=== PATIENT | male | born 1950 | race Caucasian/White ===

== ENCOUNTER 2019-05-12 12:59 | Inpatient (IN) | payer MEDICARE, OTHER ==
[~2019-05-12] VITALS: Ht 177.8 cm; Wt 98.5 kg
[~2019-05-12 12:59] MED LIST: LIDOcaine 2% (20mg/ml) 5ml vial ONE; albumin (human) 25% 100 ML IV solution IV ONE; aminocaproic acid 250 MG/1 ML inj. ONE; calcium chloride 100 MG/1 ML inj IV ONE; heparin 1,000 units/ml 10ml inj ONE; magnesium sulf 1 GM/2 ML ONE; methylPREDNISolone sod. succ. 500mg inj ONE; phenylephrine 10mg/ml inj. ONE; sodium bicarbonate (8.4%) 1 mEq/ml syringe ONE
[2019-05-12] MEDS ORDERED: heparin 25,000 UNIT/250ml bag 250 ML IV SCH ×2 (13:31→18:36)
[2019-05-12] MEDS ORDERED: heparin 10,000 units/1 ML INJ IV PRN ×2 (13:35→18:40)
--- NOTE | 2019-05-12 13:45 | NUR ---
Spoke with MD regarding use of PICC line. MD reviewed radiology results and ok'ed to use line.
[2019-05-12] MEDS ORDERED: insulin regular, human 100 UNIT in normal saline 100ml IV soln 100 ML IV SCH ×2 (13:47)
[2019-05-12 13:49] LABS: BASOPHILS # (AUTO) 0.1 X10'3 (0-0.2); BASOPHILS % (AUTO) 1.1 % (0-1); EOSINOPHILS # (AUTO) 0.2 X10'3 (0-0.9); EOSINOPHILS % (AUTO) 3.3 % (0-6); HEMATOCRIT 41.5 % (42.0-52.0); HEMOGLOBIN 13.9 g/dl (14.0-17.9); LYMPHOCYTES % (AUTO) 16.2 % (21-51); MEAN CORPUSCULAR HEMOGLOBIN 30.3 PG (27.0-31.0); MEAN CORPUSCULAR HGB CONC 33.5 g/dL (33.0-36.5); MEAN CORPUSCULAR VOLUME 90.4 FL (78-98); MEAN PLATELET VOLUME 8.4 FL (7.4-10.4); MONOCYTES # (AUTO) 0.6 X10'3 (0-0.9); MONOCYTES % (AUTO) 10.2 % (2-12); NEUTROPHILS # (AUTO) 4.3 X10'3 (1.8-7.7); NEUTROPHILS % (AUTO) 69.2 % (42-75); PLATELET COUNT 243 X10'3 (140-440); RED BLOOD COUNT 4.59 X10'6 (4.70-6.10); RED CELL DISTRIBUTION WIDTH 13.1 % (11.5-14.5); WHITE BLOOD COUNT 6.3 X10'3 (4.5-11.0)
[2019-05-12] MEDS ORDERED: cefazolin/dext.iso 2gm/50ml 50 ML IV ONE (13:50)
[2019-05-12] MEDS ORDERED: MALTODEXTRIN/FRUCTOSE 0.68 KCAL/ML LIQUID 296ML BOTTLE PO ONE (13:50)
[2019-05-12] MEDS ORDERED: magnesium 4gm in 100ml NS 100 ML IV PRN ×2 (13:50→16:50)
[2019-05-12] MEDS ORDERED: dextrose 50%-water 50ml dispensing syringe IV PRN ×3 (13:50→21:50)
[2019-05-12] MEDS ORDERED: MESSAGE TO NURSING PO ONE ×4 (13:50)
[2019-05-12] MEDS ORDERED: potassium Cl 20mEq/100mL bag 100 ML IV PRN (13:50)
[2019-05-12] MEDS ORDERED: gabapentin 400mg capsule PO ONE (13:50)
[2019-05-12] MEDS ORDERED: insulin glargine (Lantus) pen - multi-dose SQ PRN (13:50)
[2019-05-12] MEDS ORDERED: magnesium 2GM in 50ml NS 50 ML IV PRN ×2 (13:50→16:50)
[2019-05-12] MEDS ORDERED: vancomycin/NS 1 GM ADD-VANTAGE 250 ML IV ONE (13:50)
[2019-05-12] MEDS ORDERED: potassium Cl 20 mEq SR tablet PO PRN ×3 (13:50→16:50)
--- NOTE | 2019-05-12 13:56 | NUR ---
DR VILLA NOTIFIED OF 10 BEAT RUN OF V-Genome. NO NEW ORDERS AT THIS TIME.
[2019-05-12] MEDS ORDERED: papaverine 30 mg/ml 2ml inj. ONE (14:00)
[2019-05-12] MEDS ORDERED: heparin 10,000 units/1 ML INJ ONE (14:00)
--- NOTE | 2019-05-12 14:00 | NUR ---
RT AT BEDSIDE JOAN BORREGO
[2019-05-12 14:01] LABS: PARTIAL THROMBOPLASTIN TIME 41 SECONDS (22-32)
[2019-05-12 14:02] LABS: ALANINE AMINOTRANSFERASE 34 U/L (12-78); ALBUMIN 3.3 G/DL (3.4-5.0); ALBUMIN/GLOBULIN RATIO 0.9 (1.1-1.5); ALKALINE PHOSPHATASE 54 IU/L (46-116); ASPARTATE AMINO TRANSFERASE 13 U/L (10-37); BILIRUBIN,TOTAL 0.3 MG/DL (0.1-1.0); BLOOD UREA NITROGEN 15 MG/DL (7-18); BUN/CREATININE RATIO 13.9 (5.4-32.0); CALCIUM 8.8 MG/DL (8.5-10.1); CREATININE 1.08 MG/DL (0.60-1.10); GLUCOSE 192 MG/DL (70-104); TOTAL CARBON DIOXIDE 27.3 MMOL/L (24-32); TOTAL PROTEIN 7.1 G/DL (6.4-8.2); eGFR 68 ML/MIN
[2019-05-12 14:10] LABS: MAGNESIUM 1.8 MG/DL (1.5-2.4)
[2019-05-12 14:15] LABS: ABG BASE EXCESS -2.5 mmol/L (-2.0-3.0); ABG OXYGEN SATURATION 95.8 % (95-98); ABG PCO2 (T) 32.9 mmHg (35.0-45.0); ABG PH (T) 7.423 (7.350-7.450); ABG PO2 (T) 80.5 mmHg (83-108); ALLEN'S TEST Positive; FCOHb 0.9 % (0.5-1.5); FMetHb 0.1 % (0.3-1.12); FO2Hb 94.8 % (94-100); RESPIRATORY RATE (OBSERVED) 13 b/min; TOTAL HEMOGLOBIN 14.4 G/dl (14.0-17.9)
[2019-05-12 14:59] LABS: ANION GAP 5 (8-16); CHLORIDE 105 MMOL/L (99-107); POTASSIUM 4.3 MMOL/L (3.5-5.1); SODIUM 137 MMOL/L (135-145)
[2019-05-12] MEDS: amiodarone/D5 360MG/200ML BAG 200 ML IV SCH ×2 (15:00→20:51)
--- NOTE | 2019-05-12 15:06 | NUR ---
Amiodarone started at this time per protocol.
[2019-05-12 15:48] LABS: HEMOGLOBIN A1C 7.8 % (4.5-6.2)
[2019-05-12 15:54] LABS: CLARITY,URINE CLEAR (Clear); COLOR,URINE YELLOW (Yellow); GLUCOSE, URINE NEGATIVE (Neg); KETONES,URINE NEGATIVE (Neg); LEUKOCYTE ESTERASE ,URINE NEGATIVE (Neg); NITRITES, URINE NEGATIVE (Neg); OCCULT BLOOD,URINE NEGATIVE (Neg); PROTEIN,URINE NEGATIVE (Neg); UROBILINOGEN,URINE 0.2 E.U/dL (0.2-1.0)
[2019-05-12 15:55] LABS: UA COLLECTION TYPE URINAL
[2019-05-12] MEDS ORDERED: CARV3.122 PO (16:11)
[2019-05-12] MEDS ORDERED: OMEP20CA11 PO (16:11)
[2019-05-12] MEDS ORDERED: ATOR-2 PO (16:11)
[2019-05-12] MEDS ORDERED: AMIO200T61 PO (16:11)
[2019-05-12] MEDS ORDERED: NITR0.4T48 SL (16:11)
[2019-05-12] MEDS ORDERED: ASPI-845 PO (16:11)
[2019-05-12] MEDS ORDERED: INSU100V9 SQ (16:11)
[2019-05-12] MEDS ORDERED: LISI-604 PO (16:11)
[2019-05-12] MEDS ORDERED: GLIM4TAB4 PO (16:11)
[2019-05-12] MEDS ORDERED: normal saline 1000ml 1,000 ML IV SCH (16:47)
[2019-05-12] MEDS ORDERED: sodium phosphate inj. 15 MMOL in dextrose 5%-water 150 ML IV PRN (16:50)
[2019-05-12] MEDS ORDERED: sodium phosphate inj. 30 MMOL in dextrose 5%-water 250 ML IV PRN (16:50)
[2019-05-12] MEDS ORDERED: magnesium Cl slow-release 64mg tablet PO PRN (16:50)
[2019-05-12] MEDS ORDERED: ondansetron/PF 4mg/2ml inj IV PRN (16:50)
[2019-05-12] MEDS ORDERED: bisacodyl 10mg suppository rectal RC PRN (16:50)
[2019-05-12] MEDS ORDERED: magnesium hydroxide 30ml (MOM) UD suspension PO PRN (16:50)
[2019-05-12] MEDS ORDERED: acetaminophen 325mg tablet PO PRN ×2 (16:50)
[2019-05-12] MEDS ORDERED: morphine 2 MG/ML inj. syringe IV PRN (16:50)
[2019-05-12] MEDS ORDERED: morphine 4 MG/ML inj SYRINge IV PRN (16:50)
[2019-05-12] MEDS ORDERED: Neutra Phos packet PO PRN (16:50)
[2019-05-12] MEDS ORDERED: amiodarone/D5 360MG/200ML BAG 200 ML IV SCH ×2 (16:55→17:09)
--- NOTE | 2019-05-12 17:23 | NUR ---
VASCULAR AT BEDSIDE.
[2019-05-12] MEDS: mupirocin 2% nasal ointment 1gm UD NS SCH ×2 (18:11→21:54)
[2019-05-12 18:22] LABS: MEAN CORPUSCULAR HEMOGLOBIN 30.3 PG (27.0-31.0); MEAN CORPUSCULAR HGB CONC 34.1 g/dL (33.0-36.5); MEAN CORPUSCULAR VOLUME 88.9 FL (78-98); MEAN PLATELET VOLUME 8.5 FL (7.4-10.4); PLATELET COUNT 247 X10'3 (140-440); RED BLOOD COUNT 4.61 X10'6 (4.70-6.10); RED CELL DISTRIBUTION WIDTH 13.3 % (11.5-14.5); WHITE BLOOD COUNT 6.8 X10'3 (4.5-11.0)
[2019-05-12 18:44] LABS: ALBUMIN 3.3 G/DL (3.4-5.0); ANION GAP 8 (8-16); BLOOD UREA NITROGEN 15 MG/DL (7-18); CALCIUM 8.8 MG/DL (8.5-10.1); CHLORIDE 105 MMOL/L (99-107); GLUCOSE 169 MG/DL (70-104); LDL CHOLESTEROL 47 MG/DL (50-100); POTASSIUM 4.3 MMOL/L (3.5-5.1); SODIUM 139 MMOL/L (135-145); TOTAL CARBON DIOXIDE 26.4 MMOL/L (24-32); eGFR 74 ML/MIN
--- NOTE | 2019-05-12 18:45 | NUR ---
Pt refusing ordered FC at this time. He is willing to have one placed in the OR, but explained, "it's just not a natural thing. Anything we can do to delay putting that thing where it doesn't belong would be good." Pt visibly anxious throughout exchange. FC placement being delayed at this time. pt able to use urinal without issue.
--- NOTE | 2019-05-12 19:05 | NUR ---
PT GIVEN A LIGHT MEAL OF TURKEY SANDWICH AND YOGURT UPON REQUEST. PT INSTRUCTED THIS WILL BE LAST MEAL BEFORE NOP FOR SURGERY TOMORROW. PT AND FAMILY VERBALIZED UNDERSTANDING
[2019-05-12] MEDS ORDERED: heparin, porcine 5000 units/ml vial SQ SCH (20:00)
--- NOTE | 2019-05-12 20:00 | NUR ---
AMIODARONE DRIP DECREASED TO O.5ML/HR
[2019-05-12 20:04] LABS: PARTIAL THROMBOPLASTIN TIME 51 SECONDS (22-32)
--- NOTE | 2019-05-12 20:30 | NUR ---
Addressed FC placement again. Pt continues to refuse it. Will pass on pt request to hold FC placement until in the OR when report to floor called.
[2019-05-12] MEDS ORDERED: insulin glargine (Lantus) pen - multi-dose SQ SCH (21:00)
[2019-05-12] MEDS ORDERED: MESSAGE TO PHARMACY PO ONE (21:50)
[2019-05-12] MEDS ORDERED: dextrose ORAL solution 15 GM/59 ML bottle PO PRN ×2 (21:50)
[2019-05-12] MEDS ORDERED: glucagon, human recombinant 1mg kit SUBCUT PRN (21:50)
[2019-05-12] MEDS ORDERED: insulin Lispro (HumaLOG) vial - multi-dose SQ SCH (21:50)
[2019-05-12] MEDS: metoprolol tartrate 12.5mg (1/2 tablet) PO SCH (21:53)
[2019-05-12 22:00] VITALS: BP 127/67
[2019-05-12] MEDS ORDERED: insulin glargine (Lantus) pen - multi-dose SQ ONE (22:30)
[2019-05-13] VITALS (15 sets, daily range): BP systolic 99–155; BP diastolic 49–98
[2019-05-13 02:18] LABS: BASOPHILS # (AUTO) 0.1 X10'3 (0-0.2); BASOPHILS % (AUTO) 0.9 % (0-1); EOSINOPHILS # (AUTO) 0.3 X10'3 (0-0.9); EOSINOPHILS % (AUTO) 3.7 % (0-6); HEMATOCRIT 40.8 % (42.0-52.0); HEMOGLOBIN 13.6 g/dl (14.0-17.9); LYMPHOCYTES # (AUTO) 1.4 X10'3 (1.1-4.8); LYMPHOCYTES % (AUTO) 19.5 % (21-51); MEAN CORPUSCULAR HEMOGLOBIN 30.1 PG (27.0-31.0); MEAN CORPUSCULAR HGB CONC 33.3 g/dL (33.0-36.5); MEAN CORPUSCULAR VOLUME 90.4 FL (78-98); MEAN PLATELET VOLUME 8.5 FL (7.4-10.4); MONOCYTES # (AUTO) 0.7 X10'3 (0-0.9); MONOCYTES % (AUTO) 10.5 % (2-12); NEUTROPHILS # (AUTO) 4.5 X10'3 (1.8-7.7); NEUTROPHILS % (AUTO) 65.4 % (42-75); PLATELET COUNT 227 X10'3 (140-440); RED BLOOD COUNT 4.51 X10'6 (4.70-6.10); WHITE BLOOD COUNT 6.9 X10'3 (4.5-11.0)
[2019-05-13 02:29] LABS: ALANINE AMINOTRANSFERASE 30 U/L (12-78); ALBUMIN 3.1 G/DL (3.4-5.0); ALBUMIN/GLOBULIN RATIO 0.9 (1.1-1.5); ALKALINE PHOSPHATASE 49 IU/L (46-116); ANION GAP 7 (8-16); ASPARTATE AMINO TRANSFERASE 15 U/L (10-37); BILIRUBIN,TOTAL 0.3 MG/DL (0.1-1.0); BLOOD UREA NITROGEN 15 MG/DL (7-18); BUN/CREATININE RATIO 14.6 (5.4-32.0); CALCIUM 8.7 MG/DL (8.5-10.1); CHLORIDE 106 MMOL/L (99-107); CREATININE 1.03 MG/DL (0.60-1.10); GLUCOSE 149 MG/DL (70-104); SODIUM 139 MMOL/L (135-145); TOTAL CARBON DIOXIDE 26.5 MMOL/L (24-32); TOTAL PROTEIN 6.7 G/DL (6.4-8.2); eGFR 71 ML/MIN
[2019-05-13 02:32] LABS: MAGNESIUM 1.6 MG/DL (1.5-2.4); PHOSPHORUS 3.8 MG/DL (2.3-4.5)
[2019-05-13] MEDS ORDERED: potassium Cl 2 mEq/ml inj IV ONE (06:00)
--- NOTE | 2019-05-13 06:20 | NUR ---
Gave report to Cassandra. Answered all the questions.
--- NOTE | 2019-05-13 06:24 | NUR ---
heparin drip was stopped at 0530. Charge Nurse-Reddy aware of that heparin stop.
[2019-05-13] MEDS ORDERED: famotidine 20mg tablet PO ONE (07:00)
[2019-05-13] MEDS ORDERED: LORazepam 2 mg/ml vial IV ONE (07:00)
[2019-05-13] MEDS ORDERED: pantoprazole 40mg Tablet.DR PO SCH (07:30)
[2019-05-13] MEDS ORDERED: MALTODEXTRIN/FRUCTOSE 0.68 KCAL/ML LIQUID 296ML BOTTLE PO ONE (07:30)
[2019-05-13] MEDS ORDERED: cefazolin/dext.iso 2gm/50ml 50 ML IV ONE (07:30)
[2019-05-13] MEDS ORDERED: vancomycin/NS 1 GM ADD-VANTAGE 250 ML IV ONE (07:30)
[2019-05-13] MEDS ORDERED: gabapentin 300mg capsule PO ONE (07:30)
--- NOTE | 2019-05-13 07:43 | NUR ---
INFORMED DR. ROMERO AND DR. CLARK ABOUT GLUCOSE 165 BEFORE PRE-SURGERY ENSURE DRINK. NEW NEW ORDERS AT THIS TIME
[2019-05-13] MEDS: metoprolol tartrate 12.5mg (1/2 tablet) PO SCH (07:54)
[2019-05-13] MEDS: mupirocin 2% nasal ointment 1gm UD NS SCH (07:54)
--- NOTE | 2019-05-13 09:15 | NUR ---
Patient transported to surgery by OR team.
[2019-05-13] MEDS ORDERED: SUFENTANIL CITRATE 50 MCG/ML 2ml ampule IV ONE (09:25)
[2019-05-13] MEDS ORDERED: midazolam 2 mg/2 ml injection ONE (09:25)
[2019-05-13] MEDS ORDERED: sevoflurane 250ml liquid IH ONE (09:26)
[2019-05-13] MEDS ORDERED: DOPamine/D5W 400mg/250ml bag IV ONE (09:26)
[2019-05-13] MEDS ORDERED: acetaminophen 1000 MG/100ml vial IV ONE (09:26)
[2019-05-13] MEDS ORDERED: insulin regular, human 100 UNIT in normal saline 100ml IV soln 100 ML IV SCH ×2 (09:30)
[2019-05-13] MEDS ORDERED: MESSAGE TO NURSING PO ONE (10:00)
[2019-05-13 10:16] LABS: ABG BASE EXCESS -1.8 mmol/L (-2.0-3.0); ABG HCO3 23.1 mmol/L (22.0-26.0); ABG OXYGEN SATURATION 96.7 % (95-98); ABG PCO2 39.8 mmHg (35.0-45.0); ABG PH 7.382 (7.350-7.450); ABG PO2 88.6 mmHg (60.0-100.0); CL (ABG) 102 mmol/L (99-107); FCOHb 0.7 % (0.5-1.5); FMetHb 0.2 % (0.3-1.12); FO2Hb 95.8 % (94-100); GLUCOSE (ABG) 280 mg/dl (70-104); IONIZED CA (ABG) 1.14 mmol/L (1.03-1.32); K (ABG) 4.1 mmol/L (3.3-5.1); NA (ABG) 136 mmol/L (135-145); TOTAL HEMOGLOBIN 13.3 G/dl (14.0-17.9)
[2019-05-13] MEDS ORDERED: DESMOPRESSIN IV ONE (10:25)
[2019-05-13] MEDS ORDERED: NORMAL SALINE IV ONE (10:25)
--- NOTE | 2019-05-13 11:00 | NUR ---
I have reviewed and agree with all interventions, assessments performed and documented by KILO Cardenas .
--- NOTE | 2019-05-13 11:02 | NUR ---
Patient in room MED 316. I have received report from KILO Reid and had the opportunity to ask questions and assume patient care.
[2019-05-13 11:05] LABS: ABG BASE EXCESS VENOUS -2.6 mmol/L; ABG HCO3 VENOUS 23.3 mmol/L; ABG PCO2 VENOUS 44.5 mmHg; CL (ABG) 102 mmol/L (99-107); FCOHb VENOUS 0.8 %; FHHb VENOUS 24.3 %; FMetHb VENOUS 0.3 %; FO2Hb VENOUS 74.6 %; GLUCOSE (ABG) 253 mg/dl (70-104); K (ABG) 4.1 mmol/L (3.3-5.1); NA (ABG) 135 mmol/L (135-145); TOTAL HEMOGLOBIN 13.3 G/dl (14.0-17.9)
[2019-05-13] MEDS ORDERED: propofol inj 20 ML IV ONE (11:14)
[2019-05-13] MEDS ORDERED: ePHEDrine 50MG/ML INJ. ONE (11:14)
[2019-05-13] MEDS ORDERED: rocuronium 10mg/ml inj IV ONE ×3 (11:14)
[2019-05-13 11:26] LABS: ABG BASE EXCESS 0.8 mmol/L (-2.0-3.0); ABG OXYGEN SATURATION 99.3 % (95-98); ABG PCO2 38.6 mmHg (35.0-45.0); ABG PO2 302.5 mmHg (60.0-100.0); CL (ABG) 100 mmol/L (99-107); FCOHb 0.1 % (0.5-1.5); FMetHb 0.1 % (0.3-1.12); FO2Hb 99.1 % (94-100); GLUCOSE (ABG) 224 mg/dl (70-104); IONIZED CA (ABG) 1.02 mmol/L (1.03-1.32); K (ABG) 4.7 mmol/L (3.3-5.1); NA (ABG) 135 mmol/L (135-145); TOTAL HEMOGLOBIN 10.8 G/dl (14.0-17.9)
[2019-05-13 11:51] LABS: ABG BASE EXCESS VENOUS -2.3 mmol/L; ABG HCO3 VENOUS 22.3 mmol/L; ABG PCO2 VENOUS 37.4 mmHg; ABG PO2 VENOUS 54.3 mmHg; CL (ABG) 100 mmol/L (99-107); FCOHb VENOUS 0.6 %; FHHb VENOUS 13.1 %; FMetHb VENOUS 0.1 %; FO2Hb VENOUS 86.2 %; GLUCOSE (ABG) 198 mg/dl (70-104); IONIZED CA (ABG) 1.08 mmol/L (1.03-1.32); NA (ABG) 134 mmol/L (135-145); TOTAL HEMOGLOBIN 11.1 G/dl (14.0-17.9)
[2019-05-13 12:35] LABS: ABG BASE EXCESS 1.1 mmol/L (-2.0-3.0); ABG HCO3 25.3 mmol/L (22.0-26.0); ABG OXYGEN SATURATION 99.3 % (95-98); ABG PCO2 38.6 mmHg (35.0-45.0); ABG PH 7.435 (7.350-7.450); ABG PO2 393.3 mmHg (60.0-100.0); CL (ABG) 100 mmol/L (99-107); FMetHb 0.2 % (0.3-1.12); FO2Hb 99.1 % (94-100); GLUCOSE (ABG) 197 mg/dl (70-104); IONIZED CA (ABG) 1.33 mmol/L (1.03-1.32); K (ABG) 5.1 mmol/L (3.3-5.1); NA (ABG) 131 mmol/L (135-145); TOTAL HEMOGLOBIN 10.1 G/dl (14.0-17.9)
[2019-05-13 13:05] LABS: ABG BASE EXCESS VENOUS 1.8 mmol/L; ABG HCO3 VENOUS 26.6 mmol/L; ABG PCO2 VENOUS 42.6 mmHg; CL (ABG) 101 mmol/L (99-107); FCOHb VENOUS 0.6 %; FHHb VENOUS 29.3 %; FMetHb VENOUS 0.5 %; FO2Hb VENOUS 69.6 %; GLUCOSE (ABG) 192 mg/dl (70-104); IONIZED CA (ABG) 1.18 mmol/L (1.03-1.32); K (ABG) 4.8 mmol/L (3.3-5.1); NA (ABG) 136 mmol/L (135-145); TOTAL HEMOGLOBIN 11.3 G/dl (14.0-17.9)
[2019-05-13] MEDS ORDERED: DOPamine 400mg/D5W 250ml 250 ML IV PRN (13:41)
[2019-05-13] MEDS ORDERED: niCARDipine-NS 40mg/200ml IVPB 200 ML IV PRN (13:41)
[2019-05-13] MEDS ORDERED: nitroGLYCERIN-Tridil 50MG/D5W 250 ML IV PRN (13:41)
[2019-05-13] MEDS ORDERED: pantoprazole 40 MG vial IV ONE (13:45)
[2019-05-13] MEDS ORDERED: normal saline 250ml IV soln 250 ML IV PRN (13:45)
[2019-05-13] MEDS ORDERED: Neutra Phos packet PO PRN (13:45)
[2019-05-13] MEDS ORDERED: potassium Cl 20 mEq SR tablet PO PRN (13:45)
[2019-05-13] MEDS ORDERED: magnesium hydroxide 30ml (MOM) UD suspension PO PRN (13:45)
[2019-05-13] MEDS ORDERED: dextrose 50%-water 50ml dispensing syringe IV PRN (13:45)
[2019-05-13] MEDS ORDERED: magnesium 4gm in 100ml NS 100 ML IV PRN (13:45)
[2019-05-13] MEDS: insulin regular, human inj. 100 UNITS in normal saline 100ml IV soln 100 ML IV SCH ×2 (13:45)
[2019-05-13] MEDS ORDERED: ondansetron/PF 4mg/2ml inj IV PRN (13:45)
[2019-05-13] MEDS ORDERED: acetaminophen 325mg tablet PO PRN (13:45)
[2019-05-13] MEDS ORDERED: HYDROcodone/acetaminophen 10/325mg tab PO PRN ×2 (13:45)
[2019-05-13] MEDS ORDERED: sodium phosphate inj. 15 MMOL in dextrose 5%-water 150 ML IV PRN (13:45)
[2019-05-13] MEDS ORDERED: sodium phosphate inj. 30 MMOL in dextrose 5%-water 250 ML IV PRN (13:45)
[2019-05-13] MEDS ORDERED: metoclopramide 5 mg/ml inj IV PRN (13:45)
--- NOTE | 2019-05-13 14:00 | NUR ---
Received to room 2045, accompanied by MDs and surgical crew. Placed on ventilator, to monitoring engineer, arterial line and PA line pressure monitored. Chest tubes to suction at 20 cm. Branch cath to gravity drainage. Dressings are dry and intact. See assessment record. All vasoactive drugs are infusing via central line.
[2019-05-13 14:06] LABS: ABG BASE EXCESS 0.6 mmol/L (-2.0-3.0); ABG HCO3 24.7 mmol/L (22.0-26.0); ABG OXYGEN SATURATION 92.7 % (95-98); ABG PCO2 (T) 37.1 mmHg (35.0-45.0); ABG PH (T) 7.438 (7.350-7.450); ABG PO2 (T) 61.4 mmHg (83-108); FCOHb 0.2 % (0.5-1.5); FMetHb 0.1 % (0.3-1.12); FO2Hb 92.4 % (94-100); MINUTE VOLUME 8 L/min; PATIENT TEMPERATURE 36.3; PEEP 5 cm H2O; RESPIRATORY RATE 12 b/min; RESPIRATORY RATE (OBSERVED) 12 b/min; TIDAL VOLUME 600 mL; TOTAL HEMOGLOBIN 13.3 G/dl (14.0-17.9)
[2019-05-13 14:20] LABS: BASOPHILS % (AUTO) 0.4 % (0-1); EOSINOPHILS # (AUTO) 0.1 X10'3 (0-0.9); HEMATOCRIT 37.6 % (42.0-52.0); HEMOGLOBIN 12.8 g/dl (14.0-17.9); LYMPHOCYTES # (AUTO) 0.5 X10'3 (1.1-4.8); LYMPHOCYTES % (AUTO) 5.4 % (21-51); MEAN CORPUSCULAR HEMOGLOBIN 30.6 PG (27.0-31.0); MEAN CORPUSCULAR HGB CONC 34.1 g/dL (33.0-36.5); MEAN CORPUSCULAR VOLUME 89.7 FL (78-98); MEAN PLATELET VOLUME 8.5 FL (7.4-10.4); MONOCYTES # (AUTO) 0.4 X10'3 (0-0.9); MONOCYTES % (AUTO) 4.8 % (2-12); NEUTROPHILS # (AUTO) 8.1 X10'3 (1.8-7.7); NEUTROPHILS % (AUTO) 88.4 % (42-75); PLATELET COUNT 175 X10'3 (140-440); RED BLOOD COUNT 4.19 X10'6 (4.70-6.10); RED CELL DISTRIBUTION WIDTH 13.1 % (11.5-14.5); WHITE BLOOD COUNT 9.2 X10'3 (4.5-11.0)
[2019-05-13 14:28] LABS: PARTIAL THROMBOPLASTIN TIME 27 SECONDS (22-32)
[2019-05-13 14:29] LABS: ALANINE AMINOTRANSFERASE 22 U/L (12-78); ALBUMIN 2.7 G/DL (3.4-5.0); ALKALINE PHOSPHATASE 36 IU/L (46-116); ANION GAP 6 (8-16); BILIRUBIN,TOTAL 0.4 MG/DL (0.1-1.0); BLOOD UREA NITROGEN 13 MG/DL (7-18); BUN/CREATININE RATIO 10.9 (5.4-32.0); CALCIUM 8.3 MG/DL (8.5-10.1); CHLORIDE 107 MMOL/L (99-107); CREATININE 1.19 MG/DL (0.60-1.10); GLUCOSE 176 MG/DL (70-104); MAGNESIUM 2.8 MG/DL (1.5-2.4); POTASSIUM 3.9 MMOL/L (3.5-5.1); SODIUM 141 MMOL/L (135-145); TOTAL CARBON DIOXIDE 27.9 MMOL/L (24-32); TOTAL PROTEIN 5.3 G/DL (6.4-8.2); eGFR 60 ML/MIN
[2019-05-13 14:30] LABS: ASPARTATE AMINO TRANSFERASE 26 U/L (10-37)
--- NOTE | 2019-05-13 14:30 | NUR ---
pO2 61 on 80% FiO2 and PEEP of 5. Dr. Sharma at bedside with orders to increase PEEP to 10; okay to wean PEEP as tolerated.
[2019-05-13] MEDS: albumin (Human) 5% 250ml 250 ML IV PRN ×2 (15:16→17:17)
[2019-05-13] MEDS: sodium chloride 0.45% 1,000 ML IV SCH (15:19)
[2019-05-13] MEDS: potassium Cl 20mEq/100mL bag 100 ML IV PRN ×3 (15:33→22:36)
[2019-05-13] MEDS: ceFAZolin 1GM/D5W- ADD-VANTAGE 50 ML IV SCH ×2 (16:29→23:11)
[2019-05-13 16:45] LABS: ABG BASE EXCESS 0.8 mmol/L (-2.0-3.0); ABG HCO3 25.2 mmol/L (22.0-26.0); ABG OXYGEN SATURATION 95.1 % (95-98); ABG PCO2 (T) 38.9 mmHg (35.0-45.0); ABG PH (T) 7.427 (7.350-7.450); ABG PO2 (T) 72.8 mmHg (83-108); FCOHb 0.1 % (0.5-1.5); FMetHb 0.1 % (0.3-1.12); FO2Hb 94.9 % (94-100); MINUTE VOLUME 7 L/min; PATIENT TEMPERATURE 36.5; PEEP 10 cm H2O; RESPIRATORY RATE 12 b/min; TIDAL VOLUME 600 mL; TOTAL HEMOGLOBIN 13.1 G/dl (14.0-17.9)
[2019-05-13] MEDS: insulin Lispro (HumaLOG) vial - multi-dose SQ SCH (17:48)
[2019-05-13 18:00] LABS: ABG BASE EXCESS -1.2 mmol/L (-2.0-3.0); ABG OXYGEN SATURATION 94.9 % (95-98); ABG PCO2 (T) 36.1 mmHg (35.0-45.0); ABG PH (T) 7.421 (7.350-7.450); ABG PO2 (T) 74.3 mmHg (83-108); FCOHb 0.3 % (0.5-1.5); FMetHb 0.1 % (0.3-1.12); FO2Hb 94.5 % (94-100); MINUTE VOLUME 8 L/min; PATIENT TEMPERATURE 36.6; PEEP 8 cm H2O; RESPIRATORY RATE 12 b/min; TIDAL VOLUME 600 mL; TOTAL HEMOGLOBIN 12.5 G/dl (14.0-17.9)
--- NOTE | 2019-05-13 18:30 | NUR ---
Problems reprioritized. Patient report given, questions answered & plan of care reviewed with Beena BOATENG.
[2019-05-13] MEDS: morphine 4 MG/ML inj SYRINge IV PRN ×3 (18:55→23:11)
[2019-05-13] MEDS: docusate sod 100mg capsule PO SCH (20:00)
[2019-05-13] MEDS: gabapentin 300mg capsule PO SCH (20:10)
[2019-05-13] MEDS: vancomycin/NS 1 GM ADD-VANTAGE 250 ML IV SCH (20:10)
[2019-05-13] MEDS: mupirocin 2% ointment 22GM TP SCH (20:10)
[2019-05-13] MEDS: amiodarone/D5 360MG/200ML BAG 200 ML IV SCH (20:12)
[2019-05-13 20:16] LABS: ABG BASE EXCESS -0.7 mmol/L (-2.0-3.0); ABG HCO3 23.3 mmol/L (22.0-26.0); ABG OXYGEN SATURATION 94.3 % (95-98); ABG PCO2 (T) 36.2 mmHg (35.0-45.0); ABG PH (T) 7.426 (7.350-7.450); ABG PO2 (T) 70.5 mmHg (83-108); FCOHb 0.3 % (0.5-1.5); FMetHb 0.2 % (0.3-1.12); FO2Hb 93.8 % (94-100); PEEP 5 cm H2O; RESPIRATORY RATE 12 b/min; RESPIRATORY RATE (OBSERVED) 12 b/min; TIDAL VOLUME 600 mL; TOTAL HEMOGLOBIN 12.9 G/dl (14.0-17.9)
[2019-05-13 20:59] LABS: BASOPHILS % (AUTO) 0.2 % (0-1); EOSINOPHILS % (AUTO) 0 % (0-6); HEMATOCRIT 35.3 % (42.0-52.0); HEMOGLOBIN 12.1 g/dl (14.0-17.9); LYMPHOCYTES # (AUTO) 0.4 X10'3 (1.1-4.8); LYMPHOCYTES % (AUTO) 3.3 % (21-51); MEAN CORPUSCULAR HEMOGLOBIN 30.4 PG (27.0-31.0); MEAN CORPUSCULAR HGB CONC 34.2 g/dL (33.0-36.5); MEAN CORPUSCULAR VOLUME 88.8 FL (78-98); MEAN PLATELET VOLUME 8.5 FL (7.4-10.4); MONOCYTES # (AUTO) 0.3 X10'3 (0-0.9); MONOCYTES % (AUTO) 2.8 % (2-12); NEUTROPHILS # (AUTO) 10.8 X10'3 (1.8-7.7); NEUTROPHILS % (AUTO) 93.7 % (42-75); PLATELET COUNT 199 X10'3 (140-440); RED BLOOD COUNT 3.98 X10'6 (4.70-6.10); RED CELL DISTRIBUTION WIDTH 13.2 % (11.5-14.5); WHITE BLOOD COUNT 11.6 X10'3 (4.5-11.0)
[2019-05-13] MEDS ORDERED: insulin glargine (Lantus) pen - multi-dose SQ SCH (21:00)
[2019-05-13 21:52] LABS: ALBUMIN 3.2 G/DL (3.4-5.0); ANION GAP 8 (8-16); BLOOD UREA NITROGEN 15 MG/DL (7-18); BUN/CREATININE RATIO 13.5 (5.4-32.0); CALCIUM 8.2 MG/DL (8.5-10.1); CHLORIDE 108 MMOL/L (99-107); CREATININE 1.11 MG/DL (0.60-1.10); GLUCOSE 127 MG/DL (70-104); MAGNESIUM 2.2 MG/DL (1.5-2.4); PHOSPHORUS 4.7 MG/DL (2.3-4.5); SODIUM 143 MMOL/L (135-145); TOTAL CARBON DIOXIDE 26.7 MMOL/L (24-32); eGFR 65 ML/MIN
--- NOTE | 2019-05-13 22:27 | NUR ---
183..Patient in room ICU 2045. I have received report from [place] BOATENG and had the opportunity to ask questions and assume patient care.
--- NOTE | 2019-05-13 22:28 | NUR ---
1999..Assessment as noted, morphine given for complaints of incisional pain, effective. visiting at bedside.
[2019-05-13] MEDS: magnesium 2GM in 50ml NS 50 ML IV PRN (22:37)
[2019-05-14] VITALS (24 sets, daily range): BP systolic 97–149; BP diastolic 43–64
--- NOTE | 2019-05-14 00:19 | NUR ---
0000..Resting quietly, remains at bedside, attempting to wean vent, no other changes noted.
[2019-05-14 01:53] LABS: BASOPHILS % (AUTO) 0.1 % (0-1); EOSINOPHILS % (AUTO) 0 % (0-6); HEMATOCRIT 34.2 % (42.0-52.0); HEMOGLOBIN 11.4 g/dl (14.0-17.9); LYMPHOCYTES # (AUTO) 0.4 X10'3 (1.1-4.8); LYMPHOCYTES % (AUTO) 3.4 % (21-51); MEAN CORPUSCULAR HEMOGLOBIN 30.3 PG (27.0-31.0); MEAN CORPUSCULAR HGB CONC 33.4 g/dL (33.0-36.5); MEAN CORPUSCULAR VOLUME 90.6 FL (78-98); MEAN PLATELET VOLUME 9.2 FL (7.4-10.4); MONOCYTES # (AUTO) 0.5 X10'3 (0-0.9); MONOCYTES % (AUTO) 4.1 % (2-12); NEUTROPHILS # (AUTO) 11.1 X10'3 (1.8-7.7); NEUTROPHILS % (AUTO) 92.4 % (42-75); PLATELET COUNT 182 X10'3 (140-440); RED BLOOD COUNT 3.78 X10'6 (4.70-6.10); RED CELL DISTRIBUTION WIDTH 13.3 % (11.5-14.5)
[2019-05-14] MEDS: amiodarone/D5 360MG/200ML BAG 200 ML IV SCH (01:58)
[2019-05-14 02:09] LABS: PARTIAL THROMBOPLASTIN TIME 24 SECONDS (22-32)
[2019-05-14 02:18] LABS: ALANINE AMINOTRANSFERASE 24 U/L (12-78); ALBUMIN 3.2 G/DL (3.4-5.0); ALBUMIN/GLOBULIN RATIO 1.2 (1.1-1.5); ALKALINE PHOSPHATASE 33 IU/L (46-116); ANION GAP 9 (8-16); ASPARTATE AMINO TRANSFERASE 34 U/L (10-37); BILIRUBIN,TOTAL 0.3 MG/DL (0.1-1.0); BLOOD UREA NITROGEN 14 MG/DL (7-18); BUN/CREATININE RATIO 12.7 (5.4-32.0); CALCIUM 8.2 MG/DL (8.5-10.1); CHLORIDE 108 MMOL/L (99-107); GLUCOSE 188 MG/DL (70-104); MAGNESIUM 2.9 MG/DL (1.5-2.4); PHOSPHORUS 5.7 MG/DL (2.3-4.5); POTASSIUM 4.5 MMOL/L (3.5-5.1); SODIUM 142 MMOL/L (135-145); TOTAL CARBON DIOXIDE 24.8 MMOL/L (24-32); TOTAL PROTEIN 5.8 G/DL (6.4-8.2); eGFR 66 ML/MIN
--- NOTE | 2019-05-14 04:25 | NUR ---
0400..Weaning vent as tolerated, no other changes noted.
[2019-05-14 05:26] LABS: ABG BASE EXCESS -0.7 mmol/L (-2.0-3.0); ABG HCO3 22.7 mmol/L (22.0-26.0); ABG OXYGEN SATURATION 94.6 % (95-98); ABG PH (T) 7.444 (7.350-7.450); ABG PO2 (T) 68.3 mmHg (83-108); FCOHb 0.2 % (0.5-1.5); FMetHb 0.1 % (0.3-1.12); FO2Hb 94.3 % (94-100); MINUTE VOLUME 9 L/min; PATIENT TEMPERATURE 37.2; PEEP 5 cm H2O; RESPIRATORY RATE 6 b/min; RESPIRATORY RATE (OBSERVED) 14 b/min; TIDAL VOLUME 600 mL; TOTAL HEMOGLOBIN 12.6 G/dl (14.0-17.9)
[2019-05-14] MEDS: insulin regular, human inj. 100 UNITS in normal saline 100ml IV soln 100 ML IV SCH ×2 (05:34)
--- NOTE | 2019-05-14 06:11 | NUR ---
0600..Continuing to wean vent as tolerated, no other changes noted.
--- NOTE | 2019-05-14 06:15 | NUR ---
Patient in room ICU 2045. I have received report from car mechanic and had the opportunity to ask questions and assume patient care.
--- NOTE | 2019-05-14 06:18 | NUR ---
6015..Problems reprioritized. Patient report given, questions answered & plan of care reviewed with Guido BOATENG.
[2019-05-14] MEDS: morphine 4 MG/ML inj SYRINge IV PRN ×2 (07:58→11:50)
[2019-05-14] MEDS: ceFAZolin 1GM/D5W- ADD-VANTAGE 50 ML IV SCH ×2 (07:59→16:25)
[2019-05-14] MEDS: vancomycin/NS 1 GM ADD-VANTAGE 250 ML IV SCH ×2 (07:59→20:30)
[2019-05-14] MEDS ORDERED: aspirin 325mg tablet, delayed-release (Ecotrin) PO SCH (08:00)
[2019-05-14] MEDS ORDERED: metoprolol tartrate 12.5mg (1/2 tablet) PO SCH (08:00)
[2019-05-14] MEDS: mupirocin 2% ointment 22GM TP SCH ×2 (08:00→20:31)
[2019-05-14] MEDS: insulin Lispro (HumaLOG) vial - multi-dose SQ SCH ×3 (09:00→21:17)
[2019-05-14] MEDS: docusate sod 100mg capsule PO SCH ×2 (09:01→20:30)
[2019-05-14] MEDS: atorvastatin 10mg tablet PO SCH (09:01)
[2019-05-14] MEDS: gabapentin 300mg capsule PO SCH ×3 (09:03→20:30)
[2019-05-14] MEDS ORDERED: dextrose 50%-water 50ml dispensing syringe IV PRN ×2 (10:20)
[2019-05-14] MEDS ORDERED: dextrose ORAL solution 15 GM/59 ML bottle PO PRN ×2 (10:20)
[2019-05-14] MEDS ORDERED: glucagon, human recombinant 1mg kit SUBCUT PRN (10:20)
[2019-05-14] MEDS: insulin glargine (Lantus) pen - multi-dose SQ SCH (10:39)
[2019-05-14] MEDS: ketorolac tromethamine 15mg/ml inj. IV SCH ×2 (13:30→20:29)
[2019-05-14] MEDS: amiodarone 200mg tablet PO SCH ×2 (13:30→20:30)
[2019-05-14] MEDS: sodium chloride 0.45% 1,000 ML IV SCH (17:23)
--- NOTE | 2019-05-14 18:12 | NUR ---
Problems reprioritized. Patient report given, questions answered & plan of care reviewed with oncoming shift.
[2019-05-14] MEDS ORDERED: metoprolol tartrate 25mg tablet PO SCH (20:00)
[2019-05-14] MEDS: carVEDilol 3.125mg tablet PO SCH (20:29)
--- NOTE | 2019-05-14 22:24 | NUR ---
184..Patient in room ICU 2045. I have received report from Guido BOATENG and had the opportunity to ask questions and assume patient care.
--- NOTE | 2019-05-14 22:24 | NUR ---
2000..Assessment as noted, family visiting at bedside.
[2019-05-15] VITALS (17 sets, daily range): BP systolic 102–144; BP diastolic 52–71
--- NOTE | 2019-05-15 00:23 | NUR ---
0000..Resting quietly, no changes noted.
[2019-05-15] MEDS: ceFAZolin 1GM/D5W- ADD-VANTAGE 50 ML IV SCH (00:28)
[2019-05-15] MEDS: ketorolac tromethamine 15mg/ml inj. IV SCH ×4 (02:26→20:57)
[2019-05-15 03:20] LABS: BASOPHILS % (AUTO) 0.1 % (0-1); EOSINOPHILS % (AUTO) 0 % (0-6); HEMATOCRIT 32.1 % (42.0-52.0); HEMOGLOBIN 10.7 g/dl (14.0-17.9); LYMPHOCYTES # (AUTO) 0.7 X10'3 (1.1-4.8); LYMPHOCYTES % (AUTO) 5.3 % (21-51); MEAN CORPUSCULAR HEMOGLOBIN 30.4 PG (27.0-31.0); MEAN CORPUSCULAR HGB CONC 33.3 g/dL (33.0-36.5); MEAN CORPUSCULAR VOLUME 91.4 FL (78-98); MEAN PLATELET VOLUME 9.3 FL (7.4-10.4); MONOCYTES # (AUTO) 1.4 X10'3 (0-0.9); MONOCYTES % (AUTO) 10.5 % (2-12); NEUTROPHILS # (AUTO) 10.8 X10'3 (1.8-7.7); NEUTROPHILS % (AUTO) 84.1 % (42-75); PLATELET COUNT 168 X10'3 (140-440); RED BLOOD COUNT 3.51 X10'6 (4.70-6.10); RED CELL DISTRIBUTION WIDTH 13.6 % (11.5-14.5); WHITE BLOOD COUNT 12.9 X10'3 (4.5-11.0)
[2019-05-15 03:34] LABS: ANION GAP 7 (8-16); BLOOD UREA NITROGEN 27 MG/DL (7-18); BUN/CREATININE RATIO 21.3 (5.4-32.0); CHLORIDE 104 MMOL/L (99-107); CREATININE 1.27 MG/DL (0.60-1.10); GLUCOSE 227 MG/DL (70-104); MAGNESIUM 2.2 MG/DL (1.5-2.4); PHOSPHORUS 4.4 MG/DL (2.3-4.5); POTASSIUM 4.8 MMOL/L (3.5-5.1); SODIUM 138 MMOL/L (135-145); TOTAL CARBON DIOXIDE 27.4 MMOL/L (24-32); eGFR 56 ML/MIN
--- NOTE | 2019-05-15 04:10 | NUR ---
0400..No changes noted.
[2019-05-15] MEDS: magnesium 2GM in 50ml NS 50 ML IV PRN (05:42)
--- NOTE | 2019-05-15 06:21 | NUR ---
0620..Problems reprioritized. Patient report given, questions answered & plan of care reviewed with Caesar BOATENG.
--- NOTE | 2019-05-15 06:30 | NUR ---
Patient in room ICU 2045. I have received report from Flores BOATENG and had the opportunity to ask questions and assume patient care.
[2019-05-15] MEDS: atorvastatin 10mg tablet PO SCH (07:38)
[2019-05-15] MEDS: gabapentin 300mg capsule PO SCH ×2 (07:40→13:16)
[2019-05-15] MEDS: pantoprazole 40mg Tablet.DR PO SCH (07:40)
[2019-05-15] MEDS: docusate sod 100mg capsule PO SCH ×2 (07:40→20:54)
[2019-05-15] MEDS: carVEDilol 3.125mg tablet PO SCH (07:41)
[2019-05-15] MEDS: amiodarone 200mg tablet PO SCH ×3 (07:41→20:55)
[2019-05-15] MEDS: mupirocin 2% ointment 22GM TP SCH ×3 (07:42→20:00)
[2019-05-15] MEDS: aspirin 81mg tablet.DR PO SCH (07:42)
--- NOTE | 2019-05-15 08:30 | NUR ---
Jesse Mederos PA-C removed chest tubes and sutured sites, covered with gauze and secured with silk tape. Will continue to monitor.
[2019-05-15] MEDS ORDERED: carVEDilol 3.125mg tablet PO ONE (08:35)
[2019-05-15] MEDS ORDERED: potassium Cl 20 mEq SR tablet PO PRN (08:45)
[2019-05-15] MEDS ORDERED: magnesium 4gm in 100ml NS 100 ML IV PRN (08:45)
[2019-05-15] MEDS ORDERED: potassium Cl 20mEq/100mL bag 100 ML IV PRN (08:45)
[2019-05-15] MEDS ORDERED: magnesium 2GM in 50ml NS 50 ML IV PRN (08:45)
[2019-05-15] MEDS: insulin Lispro (HumaLOG) vial - multi-dose SQ SCH ×4 (10:12→20:54)
--- NOTE | 2019-05-15 12:45 | NUR ---
Pulled patient's central line, had patient hold breath during removal and applied manual pressure to site for 2 minutes. Placed tegaderm dressing and observed no drainage from site. Will continue to monitor.
--- NOTE | 2019-05-15 12:52 | NUR ---
F/u: Pt/family seen by ROULA for written/verbal DM/CABG/HH eds w/ RD contact information provided. Pt agrees to [place] ramez [place]; dietary notified. Addendum: 05/15/19 at [address] Amended: Links added.
--- NOTE | 2019-05-15 14:00 | NUR ---
Patient transferred to [facility] in wheelchair with at side, connected to bedside monitor and introduced to Zhang RN. Call light in reach and resting in bed with heart pillow present.
--- NOTE | 2019-05-15 18:14 | NUR ---
Problems reprioritized. Patient report given, questions answered & plan of care reviewed with KILO Santiago.
--- NOTE | 2019-05-15 18:25 | NUR ---
Patient in room MED 310. I have received report from KILO Holcomb and had the opportunity to ask questions and assume patient care.
[2019-05-15] MEDS: potassium Cl 20 mEq SR tablet PO SCH (20:00)
[2019-05-15] MEDS: carvedilol 6.25mg tablet PO SCH (20:55)
[2019-05-15] MEDS: magnesium Cl slow-release 64mg tablet PO SCH (20:55)
[2019-05-16 02:00] VITALS: BP 100/56
--- NOTE | 2019-05-16 02:00 | NUR ---
Discontinued Branch Catheter per MD orders. 10 MLs of NS removed from balloon. Patient tolerated well. Will continue to monitor.
[2019-05-16] MEDS: ketorolac tromethamine 15mg/ml inj. IV SCH (02:01)
[2019-05-16 02:03] LABS: BASOPHILS # (AUTO) 0.1 X10'3 (0-0.2); BASOPHILS % (AUTO) 0.6 % (0-1); EOSINOPHILS # (AUTO) 0.1 X10'3 (0-0.9); EOSINOPHILS % (AUTO) 0.7 % (0-6); HEMATOCRIT 28.6 % (42.0-52.0); HEMOGLOBIN 9.9 g/dl (14.0-17.9); LYMPHOCYTES % (AUTO) 9.7 % (21-51); MEAN CORPUSCULAR HEMOGLOBIN 31.2 PG (27.0-31.0); MEAN CORPUSCULAR HGB CONC 34.8 g/dL (33.0-36.5); MEAN CORPUSCULAR VOLUME 89.6 FL (78-98); MONOCYTES # (AUTO) 1.3 X10'3 (0-0.9); MONOCYTES % (AUTO) 12.1 % (2-12); NEUTROPHILS # (AUTO) 8.1 X10'3 (1.8-7.7); NEUTROPHILS % (AUTO) 76.9 % (42-75); PLATELET COUNT 171 X10'3 (140-440); RED BLOOD COUNT 3.19 X10'6 (4.70-6.10); RED CELL DISTRIBUTION WIDTH 12.9 % (11.5-14.5); WHITE BLOOD COUNT 10.5 X10'3 (4.5-11.0)
[2019-05-16 02:12] LABS: ALBUMIN 2.7 G/DL (3.4-5.0); ANION GAP 6 (8-16); BLOOD UREA NITROGEN 41 MG/DL (7-18); BUN/CREATININE RATIO 33.3 (5.4-32.0); CALCIUM 7.8 MG/DL (8.5-10.1); CHLORIDE 103 MMOL/L (99-107); CREATININE 1.23 MG/DL (0.60-1.10); GLUCOSE 170 MG/DL (70-104); MAGNESIUM 2.4 MG/DL (1.5-2.4); POTASSIUM 4.7 MMOL/L (3.5-5.1); SODIUM 135 MMOL/L (135-145); TOTAL CARBON DIOXIDE 26.3 MMOL/L (24-32); eGFR 58 ML/MIN
--- NOTE | 2019-05-16 06:20 | NUR ---
Problems reprioritized. Patient report given, questions answered & plan of care reviewed with KILO James.
--- NOTE | 2019-05-16 06:30 | NUR ---
Patient in room MED 310. I have received report from Lesa BOATENG and had the opportunity to ask questions and assume patient care. Pt sleeping with at the bedside
--- NOTE | 2019-05-16 06:30 | NUR ---
Patient in room MED 310. I have received report from KILO Mcfadden and had the opportunity to ask questions and assume patient care.
[2019-05-16 07:00] VITALS: BP 111/63
[2019-05-16] MEDS: aspirin 81mg tablet.DR PO SCH (07:53)
[2019-05-16] MEDS: pantoprazole 40mg Tablet.DR PO SCH (07:53)
[2019-05-16] MEDS: amiodarone 200mg tablet PO SCH ×3 (07:53→20:24)
[2019-05-16] MEDS: carvedilol 6.25mg tablet PO SCH ×2 (07:53→20:24)
[2019-05-16] MEDS: atorvastatin 10mg tablet PO SCH (07:54)
[2019-05-16] MEDS: docusate sod 100mg capsule PO SCH ×2 (07:54→20:23)
[2019-05-16] MEDS: magnesium Cl slow-release 64mg tablet PO SCH ×2 (08:00→20:23)
[2019-05-16] MEDS: potassium Cl 20 mEq SR tablet PO SCH ×2 (08:00→20:00)
[2019-05-16 09:26] LABS: ACT @ 1.70 U 259 SEC (193-297); ACT @ 2.84 U 375 SEC (260-420); BASELINE ACT 142 SEC (101-148); PATIENT WEIGHT 91.0k KG
[2019-05-16 09:26] LABS: ACTIVATED CLOTTING TIME 106 SEC (101-148)
[2019-05-16] MEDS: mupirocin 2% ointment 22GM TP SCH ×2 (09:29→20:00)
[2019-05-16] MEDS: insulin Lispro (HumaLOG) vial - multi-dose SQ SCH ×3 (09:31→18:59)
[2019-05-16] MEDS: insulin glargine (Lantus) pen - multi-dose SQ SCH (09:36)
[2019-05-16 11:00] VITALS: BP 121/64
[2019-05-16] MEDS: acetaminophen 325mg tablet PO PRN ×2 (12:19→19:00)
--- NOTE | 2019-05-16 13:53 | NUR ---
Initial: Pt s/p CABGx4 PO increased to 100% meals w/ nigerian yogurt BIDLD meeting healing needs. LBM 05/15. No nutrition concerns at this time. Will continue to monitor for additional protein needs post-op. Rec: 1. continue heart healthy/carb controlled diet 2. nigerian yogurt BIDLD 3. routine bowel care 4. wt per rx Addendum: 05/16/19 at [address] Amended: Links added.
[2019-05-16] MEDS: clopidogrel 75mg tablet PO SCH (14:15)
--- NOTE | 2019-05-16 14:50 | NUR ---
Pt had 5 beat run of V-tach at 1427 followed by 4 PVCs in a row. Pt asymptomatic, vital signs WNL. STU Villalobos notified. No new orders received.
--- NOTE | 2019-05-16 15:48 | NUR ---
Pt had two additional 5 beat runs of Vtach as well as couplet PACs/PVCs. STU Villalobos notified and said he wants to be notified if the Vtach is sustained or if the pt is symptomatic. Will continue to monitor and intervene.
--- NOTE | 2019-05-16 17:16 | NUR ---
[place] documentation: I have reviewed and agree with all interventions, assessments performed and documented by KILO Maldonado.
--- NOTE | 2019-05-16 17:59 | NUR ---
Problems reprioritized. Patient report given, questions answered & plan of care reviewed with KILO Mcfadden. PT is eating dinner and resting comfortably in bed. and another visitor are at the bedside.
[2019-05-16 18:00] VITALS: BP 136/65
--- NOTE | 2019-05-16 18:25 | NUR ---
Patient in room MED 310. I have received report from Erica RN and Laura RN and had the opportunity to ask questions and assume patient care.
[2019-05-16 22:00] VITALS: BP 118/80
[2019-05-17] MEDS: acetaminophen 325mg tablet PO PRN ×3 (01:10→20:37)
[2019-05-17 01:50] LABS: BASOPHILS # (AUTO) 0.1 X10'3 (0-0.2); BASOPHILS % (AUTO) 0.7 % (0-1); EOSINOPHILS # (AUTO) 0.3 X10'3 (0-0.9); EOSINOPHILS % (AUTO) 3.6 % (0-6); HEMATOCRIT 29.2 % (42.0-52.0); LYMPHOCYTES # (AUTO) 1.3 X10'3 (1.1-4.8); LYMPHOCYTES % (AUTO) 14.3 % (21-51); MEAN CORPUSCULAR HGB CONC 34.4 g/dL (33.0-36.5); MEAN CORPUSCULAR VOLUME 90.3 FL (78-98); MEAN PLATELET VOLUME 8.9 FL (7.4-10.4); MONOCYTES # (AUTO) 0.8 X10'3 (0-0.9); MONOCYTES % (AUTO) 9.3 % (2-12); NEUTROPHILS # (AUTO) 6.3 X10'3 (1.8-7.7); NEUTROPHILS % (AUTO) 72.1 % (42-75); PLATELET COUNT 190 X10'3 (140-440); RED BLOOD COUNT 3.23 X10'6 (4.70-6.10); RED CELL DISTRIBUTION WIDTH 13.1 % (11.5-14.5); WHITE BLOOD COUNT 8.7 X10'3 (4.5-11.0)
[2019-05-17 01:57] LABS: ALBUMIN 2.7 G/DL (3.4-5.0); ANION GAP 7 (8-16); BLOOD UREA NITROGEN 38 MG/DL (7-18); BUN/CREATININE RATIO 34.5 (5.4-32.0); CALCIUM 8.1 MG/DL (8.5-10.1); CHLORIDE 105 MMOL/L (99-107); GLUCOSE 137 MG/DL (70-104); POTASSIUM 4.4 MMOL/L (3.5-5.1); SODIUM 139 MMOL/L (135-145); TOTAL CARBON DIOXIDE 26.9 MMOL/L (24-32); eGFR 66 ML/MIN
[2019-05-17 02:00] VITALS: BP 121/54
[2019-05-17 03:32] LABS: MAGNESIUM 2.2 MG/DL (1.5-2.4)
[2019-05-17 06:00] VITALS: BP 135/69
--- NOTE | 2019-05-17 06:21 | NUR ---
Patient in room MED 310. I have received report from KILO Mcfadden and had the opportunity to ask questions and assume patient care.
--- NOTE | 2019-05-17 06:23 | NUR ---
Problems reprioritized. Patient report given, questions answered & plan of care reviewed with KILO Maldonado and KILO Stevenson.
--- NOTE | 2019-05-17 07:00 | NUR ---
Patient is c/o a headache this morning. He states that he did not get much sleep last night and therefore is exhausted. Patient encouraged to ambulate. Patient has been given a wash cloth, and the room is dark at this time. at bedside sleeping at this time. Will continue to monitor patient. Tylenol to be given.
[2019-05-17] MEDS: insulin glargine (Lantus) pen - multi-dose SQ SCH (07:08)
[2019-05-17] MEDS: pantoprazole 40mg Tablet.DR PO SCH (07:09)
[2019-05-17] MEDS: docusate sod 100mg capsule PO SCH ×2 (07:09→20:28)
[2019-05-17] MEDS: atorvastatin 10mg tablet PO SCH (07:10)
[2019-05-17] MEDS: aspirin 81mg tablet.DR PO SCH (07:10)
[2019-05-17] MEDS: clopidogrel 75mg tablet PO SCH (07:10)
[2019-05-17] MEDS: amiodarone 200mg tablet PO SCH ×3 (07:11→20:28)
[2019-05-17] MEDS: carvedilol 6.25mg tablet PO SCH ×2 (07:11→20:28)
[2019-05-17] MEDS: magnesium Cl slow-release 64mg tablet PO SCH ×2 (08:00→20:28)
[2019-05-17] MEDS: potassium Cl 20 mEq SR tablet PO SCH ×2 (08:00→20:28)
[2019-05-17] MEDS: insulin Lispro (HumaLOG) vial - multi-dose SQ SCH ×3 (09:13→19:01)
--- NOTE | 2019-05-17 09:15 | NUR ---
Dr. Sharma and Vikas Martinez present at the patients bedside. They have been informed that the patient did not sleep well last night and is complaining of back pain. MD is aware that the patient is having a slow moving morning and has not yet walked, or eaten his breakfast. at the bedside. Will continue to monitor patient.
[2019-05-17 11:00] VITALS: BP 135/76
[2019-05-17 15:00] VITALS: BP 135/67
--- NOTE | 2019-05-17 17:14 | NUR ---
[place] documentation: I have reviewed and agree with all interventions, assessments performed and documented by Erica BOATENG. [place] Medication Administration: For this medication-pass time frame, all medication were reviewed, dispensed, administered and documented per hospital policy by Erica BOATENG.
[2019-05-17 18:00] VITALS: BP 152/76
--- NOTE | 2019-05-17 18:14 | NUR ---
Problems reprioritized. Patient report given, questions answered & plan of care reviewed with KILO Canela .
--- NOTE | 2019-05-17 18:20 | NUR ---
Patient in room MED 310. I have received report from KILO Stevenson and KILO Maldonado and had the opportunity to ask questions and assume patient care.
[2019-05-17 22:00] VITALS: BP 125/68
[2019-05-18 02:00] VITALS: BP 134/67
[2019-05-18 02:34] LABS: BASOPHILS % (AUTO) 0.5 % (0-1); EOSINOPHILS # (AUTO) 0.3 X10'3 (0-0.9); EOSINOPHILS % (AUTO) 3.8 % (0-6); HEMATOCRIT 32.1 % (42.0-52.0); LYMPHOCYTES # (AUTO) 1.2 X10'3 (1.1-4.8); LYMPHOCYTES % (AUTO) 15.4 % (21-51); MEAN CORPUSCULAR HEMOGLOBIN 30.6 PG (27.0-31.0); MEAN CORPUSCULAR HGB CONC 34.3 g/dL (33.0-36.5); MEAN CORPUSCULAR VOLUME 89.2 FL (78-98); MEAN PLATELET VOLUME 8.4 FL (7.4-10.4); MONOCYTES # (AUTO) 0.8 X10'3 (0-0.9); MONOCYTES % (AUTO) 9.9 % (2-12); NEUTROPHILS # (AUTO) 5.6 X10'3 (1.8-7.7); NEUTROPHILS % (AUTO) 70.4 % (42-75); PLATELET COUNT 253 X10'3 (140-440)
[2019-05-18 02:43] LABS: ALBUMIN 2.8 G/DL (3.4-5.0); ANION GAP 6 (8-16); BLOOD UREA NITROGEN 23 MG/DL (7-18); BUN/CREATININE RATIO 24.7 (5.4-32.0); CALCIUM 8.7 MG/DL (8.5-10.1); CHLORIDE 107 MMOL/L (99-107); CREATININE 0.93 MG/DL (0.60-1.10); GLUCOSE 94 MG/DL (70-104); POTASSIUM 4.5 MMOL/L (3.5-5.1); SODIUM 140 MMOL/L (135-145); TOTAL CARBON DIOXIDE 27.1 MMOL/L (24-32); eGFR 80 ML/MIN
[2019-05-18] MEDS: acetaminophen 325mg tablet PO PRN ×2 (05:26→20:45)
[2019-05-18 06:00] VITALS: BP 154/80
--- NOTE | 2019-05-18 06:10 | NUR ---
Patient in room MED 308. I have received report from KILO Mcfadden and had the opportunity to ask questions and assume patient care.
--- NOTE | 2019-05-18 06:15 | NUR ---
Problems reprioritized. Patient report given, questions answered & plan of care reviewed with KILO Sanchez and KILO Cardenas .
[2019-05-18] MEDS: atorvastatin 20mg tablet PO SCH (08:52)
[2019-05-18] MEDS: docusate sod 100mg capsule PO SCH ×2 (08:52→20:42)
[2019-05-18] MEDS: clopidogrel 75mg tablet PO SCH (08:53)
[2019-05-18] MEDS: potassium Cl 20 mEq SR tablet PO SCH ×4 (08:53→20:40)
[2019-05-18] MEDS: carvedilol 6.25mg tablet PO SCH ×2 (08:53→20:42)
[2019-05-18] MEDS: magnesium Cl slow-release 64mg tablet PO SCH ×2 (08:53→20:42)
[2019-05-18] MEDS: amiodarone 200mg tablet PO SCH ×3 (08:53→20:42)
[2019-05-18] MEDS: pantoprazole 40mg Tablet.DR PO SCH (08:53)
[2019-05-18] MEDS: aspirin 81mg tablet.DR PO SCH (08:54)
[2019-05-18] MEDS: insulin glargine (Lantus) pen - multi-dose SQ SCH (09:06)
[2019-05-18] MEDS: insulin Lispro (HumaLOG) vial - multi-dose SQ SCH ×3 (09:09→18:55)
[2019-05-18 11:00] VITALS: BP 107/60
[2019-05-18 15:00] VITALS: BP 134/67
--- NOTE | 2019-05-18 17:50 | NUR ---
I have reviewed and agree with all interventions, assessments performed and documented by KILO Del Rosario. Addendum: 05/18/19 at 1805 by Carin Hernandez RN correction: I have reviewed and agree with all interventions, assessments performed and documented by KILO Cardenas.
--- NOTE | 2019-05-18 18:19 | NUR ---
Problems reprioritized. Patient report given, questions answered & plan of care reviewed with KILO De Santiago.
--- NOTE | 2019-05-18 18:31 | NUR ---
Patient in room MED 310. I have received report from Theresa BOATENG and had the opportunity to ask questions and assume patient care. bedside report completed. at bedside, fall precaution initiated and education provided.
[2019-05-18 18:35] VITALS: BP 112/90
[2019-05-18] MEDS ORDERED: lisinopril 5mg tablet PO SCH (21:00)
[2019-05-18 22:50] VITALS: BP 124/64
[2019-05-19 02:56] VITALS: BP 116/58
[2019-05-19 04:45] LABS: ALBUMIN 2.8 G/DL (3.4-5.0); ANION GAP 5 (8-16); BLOOD UREA NITROGEN 19 MG/DL (7-18); BUN/CREATININE RATIO 21.3 (5.4-32.0); CALCIUM 8.7 MG/DL (8.5-10.1); CHLORIDE 106 MMOL/L (99-107); CREATININE 0.89 MG/DL (0.60-1.10); GLUCOSE 104 MG/DL (70-104); POTASSIUM 4.6 MMOL/L (3.5-5.1); SODIUM 139 MMOL/L (135-145); TOTAL CARBON DIOXIDE 27.9 MMOL/L (24-32); eGFR 85 ML/MIN
[2019-05-19 06:00] VITALS: BP 128/72
--- NOTE | 2019-05-19 06:10 | NUR ---
Problems reprioritized. Patient report given,Adilene BOATENG questions answered & plan of care reviewed with .
--- NOTE | 2019-05-19 06:20 | NUR ---
Patient in room MED 310. I have received report from KILO De Santiago and had the opportunity to ask questions and assume patient care.
[2019-05-19] MEDS: pantoprazole 40mg Tablet.DR PO SCH (07:05)
[2019-05-19] MEDS: acetaminophen 325mg tablet PO PRN (07:05)
[2019-05-19] MEDS: docusate sod 100mg capsule PO SCH (07:29)
[2019-05-19] MEDS: amiodarone 200mg tablet PO SCH (07:29)
[2019-05-19] MEDS: carvedilol 6.25mg tablet PO SCH (07:29)
[2019-05-19] MEDS: potassium Cl 20 mEq SR tablet PO SCH (07:29)
[2019-05-19] MEDS: magnesium Cl slow-release 64mg tablet PO SCH (07:29)
[2019-05-19] MEDS: aspirin 81mg tablet.DR PO SCH (07:29)
[2019-05-19] MEDS: clopidogrel 75mg tablet PO SCH (07:29)
[2019-05-19] MEDS: atorvastatin 20mg tablet PO SCH (07:30)
--- NOTE | 2019-05-19 09:00 | NUR ---
TRACY SPENCER AND DR. ROMERO AT NURSING STATION AND MADE AWARE OF 2-10 BEAT RUNS OF VTACH OVERNIGHT.
[2019-05-19] MEDS: insulin glargine (Lantus) pen - multi-dose SQ SCH (09:04)
[2019-05-19] MEDS: insulin Lispro (HumaLOG) vial - multi-dose SQ SCH (09:05)
[2019-05-19] MEDS ORDERED: AMIO200T61 PO (10:07)
[2019-05-19] MEDS ORDERED: CLOP75TA35 PO (10:07)
[2019-05-19] MEDS ORDERED: CARV6.253 PO (10:07)
[2019-05-19] MEDS ORDERED: ASPI-1071 PO (10:07)
--- NOTE | 2019-05-19 12:00 | NUR ---
Patient stable for discharge per MD orders. Home health services to contact patient, patient and family aware. Prescriptions called in to [facility] pharmacy in [place] at 1055. All discharge instructions and prescriptions reviewed with patient and spouse. Pt to call for follow up appointments per MD discharge orders. PIV discontinued, cannula intact, clean, dry dressing in place. PICC line discontinued per protocol; vaseline and gauze dressing in place, pressure on site held for 5 minutes. Clean, dry, dressing in place with no s/sx of bleeding or air embolism. pvc monitor discontinued and removed. All personal belongings collected and sent with patient. [facility] to be transported home by .
== END 2019-05-19 11:55 | disposition home health service (06) | DRG 235 ==
LOC: ER 13:00 → ED HOLD 16:47 → MED 3N 21:23 → ICU 2S 05-13 13:04 → MED 3N 05-15 14:30
PROVIDERS: ADMIT Internal Medicine Critical Care Medicine; ATTEND Thoracic Surgery (Cardiothoracic Vascular Surgery)
PROC: 021209W Bypass Coronary Artery, Three Arteries from Aorta with Autologous Venous Tissue, Open Approach (ICD-10-PCS; 2019-05-13)
PROC: 06BQ4ZZ Excision of Left Saphenous Vein, Percutaneous Endoscopic Approach (ICD-10-PCS; 2019-05-13)
PROC: 5A1221Z Performance of Cardiac Output, Continuous (ICD-10-PCS; 2019-05-13)
PROC: B24BZZ4 Ultrasonography of Heart with Aorta, Transesophageal (ICD-10-PCS; 2019-05-13)
PROC: 02L70CK Occlusion of Left Atrial Appendage with Extraluminal Device, Open Approach (ICD-10-PCS; 2019-05-13)
PROC: 02HP32Z Insertion of Monitoring Device into Pulmonary Trunk, Percutaneous Approach (ICD-10-PCS; 2019-05-13)
PROC: 02HV33Z Insertion of Infusion Device into Superior Vena Cava, Percutaneous Approach (ICD-10-PCS; 2019-05-13)
PROC: 4A133B3 Monitoring of Arterial Pressure, Pulmonary, Percutaneous Approach (ICD-10-PCS; 2019-05-13)
PROC: 4A1239Z Monitoring of Cardiac Output, Percutaneous Approach (ICD-10-PCS; 2019-05-13)
PROC: 02100Z9 Bypass Coronary Artery, One Artery from Left Internal Mammary, Open Approach (ICD-10-PCS; principal; 2019-05-13 09:26)
DX: I25.110 Atherosclerotic heart disease of native coronary artery with unstable angina pectoris (principal); I21.4 Non-ST elevation (NSTEMI) myocardial infarction; I47.2 Ventricular tachycardia; I42.9 Cardiomyopathy, unspecified; E11.9 Type 2 diabetes mellitus without complications; E78.5 Hyperlipidemia, unspecified; I49.3 Ventricular premature depolarization; F41.9 Anxiety disorder, unspecified; G47.30 Sleep apnea, unspecified; E66.9 Obesity, unspecified; I10 Essential (primary) hypertension; I34.0 Nonrheumatic mitral (valve) insufficiency; Z98.61 Coronary angioplasty status; Z68.31 Body mass index [BMI] 31.0-31.9, adult; Z79.899 Other long term (current) drug therapy; Z79.82 Long term (current) use of aspirin; Z79.84 Long term (current) use of oral hypoglycemic drugs; I48.91 Unspecified atrial fibrillation; I44.30 Unspecified atrioventricular block
CPT/HCPCS: 0232T; 93306; 93312; 93325; 96365; 96366; 96376; 99285; 36415; 36600; 71045; 71046; 80048; 80053; 81003; 82330; 82435; 82803; 82947; 82948; 83036; 83721; 83735; 83880; 84100; 84132; 84145; 84295; 84443; 84484; 85018; 85025; 85027; 85347; 85384; 85576; 85610; 85730; 86885; 86900; 86901; 86920; 87081; 93005; 93880; 93971; 94002; 94003; 94010; 94667; 94668; 94760; 97110; 97112; 97116; 97161; 97530; A4618; A6258; A6402; A6446; A6449; A7000; A7048; C1713; C1751; C9113; G0378; J0131; J0690; J1265; J1644; J1815; J1885; J2001; J2060; J2150; J2250; J2270; J2370; J2440; J2597; J2704; J2930; J3370; J3475; J3480; J3490; J7030; J7040; J7050; J7060; J7120; P9045; P9047

== ENCOUNTER 2019-12-02 10:18 | Day surgery (SDC) | payer MEDICARE, OTHER ==
[~2019-12-02] VITALS: Ht 179.1 cm; Wt 86.4 kg
[~2019-12-02 10:18] MED LIST changes: +AMIO200T61 PO; +ASPI-1071 PO; +ATOR-2 PO; +CARV6.253 PO; +CLOP75TA35 PO; +GLIM4TAB7 PO; +INSU100V9 SQ; -LIDOcaine 2% (20mg/ml) 5ml vial ONE; +LISI-604 PO; +NITR0.4T48 SL; +OMEP20CA15 PO; -albumin (human) 25% 100 ML IV solution IV ONE; -aminocaproic acid 250 MG/1 ML inj. ONE; -calcium chloride 100 MG/1 ML inj IV ONE; -heparin 1,000 units/ml 10ml inj ONE; -magnesium sulf 1 GM/2 ML ONE; -methylPREDNISolone sod. succ. 500mg inj ONE; -phenylephrine 10mg/ml inj. ONE; -sodium bicarbonate (8.4%) 1 mEq/ml syringe ONE
[2019-12-02 10:30] VITALS: BP 150/79
[2019-12-02] MEDS ORDERED: CARV3.122 PO (11:04)
[2019-12-02] MEDS ORDERED: GLIM2TAB6 PO (11:04)
[2019-12-02] MEDS ORDERED: CLOP75TA15 PO (11:05)
[2019-12-02] MEDS ORDERED: ASPI-611 PO (11:06)
[2019-12-02] MEDS ORDERED: LISI2.5T2 PO (11:07)
[2019-12-02] MEDS ORDERED: OMEP40CA13 PO (11:07)
[2019-12-02] MEDS ORDERED: FERR236T3 PO (11:08)
[2019-12-02] MEDS ORDERED: ASCO500C17 PO (11:09)
[2019-12-02] MEDS ORDERED: CYAN500T46 PO (11:10)
[2019-12-02] MEDS ORDERED: OMEG-92 PO (11:12)
[2019-12-02] MEDS ORDERED: fentaNYL/PF 50MCG/1 ML 2ML syringe ONE (11:15)
[2019-12-02] MEDS ORDERED: MIDAZolam 5mg/5ml vial ONE (11:16)
[2019-12-02] MEDS ORDERED: LIDOcaine Viscous 15ml cup ONE (11:16)
[2019-12-02 12:19] VITALS: BP 141/70
[2019-12-02 12:29] VITALS: BP 135/73
[2019-12-02 12:39] VITALS: BP 130/73
[2019-12-02 12:49] VITALS: BP 134/73
== END 2019-12-02 13:12 | disposition home or self-care (01) ==
LOC: GI LAB 10:18
PROVIDERS: ATTEND Internal Medicine Gastroenterology
DX: D50.0 Iron deficiency anemia secondary to blood loss (chronic) (principal); D12.3 Benign neoplasm of transverse colon; D12.2 Benign neoplasm of ascending colon; D12.4 Benign neoplasm of descending colon; D12.0 Benign neoplasm of cecum; K57.30 Diverticulosis of large intestine without perforation or abscess without bleeding; K64.8 Other hemorrhoids; K22.8 Other specified diseases of esophagus; K44.9 Diaphragmatic hernia without obstruction or gangrene; K20.8 Other esophagitis; K29.50 Unspecified chronic gastritis without bleeding; K31.7 Polyp of stomach and duodenum
CPT/HCPCS: 43239; 43251; 45380; 45385; 99152; 99153; C1773; J2250; J3010; J7040; A4620

== ENCOUNTER 2023-09-18 10:19 | Day surgery (SDC) | payer MEDICARE, OTHER ==
[2023-09-18] VITALS (8 sets, daily range): BP systolic 88–109; BP diastolic 52–64; PULSE 55–96; RESP 12–17; TEMP 97.9; O2SAT 92–96
[~2023-09-18] VITALS: Ht 177.8 cm; Wt 88.4 kg
[~2023-09-18 10:19] MED LIST changes: -AMIO200T61 PO; +ASCO500C17 PO; -ASPI-1071 PO; +ASPI-611 PO; +CARV3.122 PO; -CARV6.253 PO; +CLOP75TA15 PO; -CLOP75TA35 PO; +CYAN500T46 PO; +FERR236T3 PO; +GLIM2TAB6 PO; -GLIM4TAB7 PO; -INSU100V9 SQ; -LISI-604 PO; +LISI2.5T14 PO; +OMEG-92 PO; +OMEP40CA21 PO
[2023-09-18] MEDS ORDERED: cefazolin 2gm/D5W 100mL 100 ML IV ONE (10:40)
[2023-09-18] MEDS ORDERED: MEXI150C PO (11:01)
[2023-09-18] MEDS ORDERED: SACU1TAB PO (11:01)
[2023-09-18] MEDS ORDERED: SPIR25TA5 PO (11:01)
[2023-09-18] MEDS ORDERED: EMPA10TA PO (11:01)
[2023-09-18] MEDS ORDERED: FURO20TA4 PO (11:04)
[2023-09-18] MEDS ORDERED: LEVO50CA4 PO (11:04)
[2023-09-18 11:32] LABS: BASOPHILS % (AUTO) 0.9 % (0-1); EOSINOPHILS # (AUTO) 0.3 X10'3 (0-0.9); EOSINOPHILS % (AUTO) 5.7 % (0-6); HEMATOCRIT 49.1 % (42.0-52.0); HEMOGLOBIN 16.2 g/dl (14.0-17.9); LYMPHOCYTES # (AUTO) 0.9 X10'3 (1.1-4.8); LYMPHOCYTES % (AUTO) 15.4 % (21-51); MEAN CORPUSCULAR HEMOGLOBIN 29.5 PG (27.0-31.0); MEAN CORPUSCULAR VOLUME 89.3 FL (78-98); MEAN PLATELET VOLUME 8.4 FL (7.4-10.4); MONOCYTES # (AUTO) 0.6 X10'3 (0-0.9); MONOCYTES % (AUTO) 11.3 % (2-12); NEUTROPHILS # (AUTO) 3.7 X10'3 (1.8-7.7); NEUTROPHILS % (AUTO) 66.7 % (42-75); PLATELET COUNT 204 X10'3 (140-440); RED CELL DISTRIBUTION WIDTH 13.7 % (11.5-14.5); WHITE BLOOD COUNT 5.6 X10'3 (4.5-11.0)
[2023-09-18] MEDS: VANCOMYCIN 1,500MG in NS 300ml IVPB IV ONE (11:33)
[2023-09-18] MEDS ORDERED: LIDOCAINE 2%/EPI 1:100,000 inj. Multi-dose 20 ML VIAL ONE (11:37)
[2023-09-18 11:43] LABS: ALBUMIN 3.7 G/DL (3.4-5.0); ANION GAP 10 (8-16); BLOOD UREA NITROGEN 34 MG/DL (7-18); BUN/CREATININE RATIO 27.6 (10.0-20.0); CALCIUM 8.9 MG/DL (8.5-10.1); CHLORIDE 104 MMOL/L (99-107); CREATININE 1.23 MG/DL (0.60-1.10); GLUCOSE 214 MG/DL (70-104); SODIUM 139 MMOL/L (135-145); eCRCL 54 ML/MIN; eGFR 58 ML/MIN
[2023-09-18 11:45] LABS: INR 1.1 INR; PROTHROMBIN TIME 11.6 SECONDS (9.0-12.0)
[2023-09-18] MEDS ORDERED: vancomycin 1,000mg inj ONE (13:41)
[2023-09-18] MEDS ORDERED: midazolam 1 mg/ML 2ml injection ONE ×3 (13:41→14:35)
[2023-09-18] MEDS ORDERED: fentaNYL/PF 50MCG/1 ML 2ML syringe ONE (13:41)
[2023-09-18] MEDS ORDERED: iohexol 350 MG/ML 50ML vial IV ONE (13:41)
[2023-09-18] MEDS ORDERED: HYDROcodone/acetaminophen 5mg/325mg tablet PO PRN (15:30)
[2023-09-18] MEDS ORDERED: HYDROcodone/acetaminophen 10/325mg tab PO PRN (15:30)
[2023-09-18] MEDS ORDERED: normal saline 1000ml 1,000 ML IV SCH (15:30)
== END 2023-09-18 18:05 | disposition home or self-care (01) ==
LOC: SSTAY O 10:19
PROVIDERS: ATTEND Internal Medicine Cardiovascular Disease
DX: I25.5 Ischemic cardiomyopathy (principal); I42.0 Dilated cardiomyopathy; I11.0 Hypertensive heart disease with heart failure; I50.22 Chronic systolic (congestive) heart failure; I25.118 Atherosclerotic heart disease of native coronary artery with other forms of angina pectoris; E03.9 Hypothyroidism, unspecified; I25.2 Old myocardial infarction; E78.5 Hyperlipidemia, unspecified; E11.9 Type 2 diabetes mellitus without complications; G47.30 Sleep apnea, unspecified; Z95.1 Presence of aortocoronary bypass graft; Z95.5 Presence of coronary angioplasty implant and graft; Z79.899 Other long term (current) drug therapy; Z79.01 Long term (current) use of anticoagulants; Z79.84 Long term (current) use of oral hypoglycemic drugs; Z98.890 Other specified postprocedural states
CPT/HCPCS: 33249; 36415; 71045; 80048; 82948; 83735; 85025; 85610; 93005; 99152; 99153; C1777; C1882; C1898; J2250; J3010; J3370; J7030; J7040; Q9967; A4565; A6258

== ENCOUNTER 2023-09-19 23:13 | Emergency (ER) | payer MEDICARE, OTHER ==
[~2023-09-19] VITALS: Ht 172.7 cm; Wt 89.1 kg
[~2023-09-19 23:13] MED LIST changes: -ASCO500C17 PO; -ASPI-611 PO; -CYAN500T46 PO; +EMPA10TA PO; -FERR236T3 PO; +FURO20TA4 PO; +LEVO50CA4 PO; -LISI2.5T14 PO; +MEXI150C PO; -OMEG-92 PO; -OMEP20CA15 PO; -OMEP40CA21 PO; +SACU1TAB PO; +SPIR25TA5 PO
[2023-09-19 23:19] VITALS: TEMP 98
[2023-09-20 00:28] LABS: BASOPHILS # (AUTO) 0.1 X10'3 (0-0.2); BASOPHILS % (AUTO) 0.7 % (0-1); EOSINOPHILS # (AUTO) 0.3 X10'3 (0-0.9); EOSINOPHILS % (AUTO) 4.3 % (0-6); HEMATOCRIT 48.2 % (42.0-52.0); HEMOGLOBIN 16.1 g/dl (14.0-17.9); LYMPHOCYTES # (AUTO) 1.5 X10'3 (1.1-4.8); LYMPHOCYTES % (AUTO) 18.5 % (21-51); MEAN CORPUSCULAR HGB CONC 33.5 g/dL (33.0-36.5); MEAN CORPUSCULAR VOLUME 89.5 FL (78-98); MEAN PLATELET VOLUME 8.6 FL (7.4-10.4); MONOCYTES % (AUTO) 12.1 % (2-12); NEUTROPHILS # (AUTO) 5.1 X10'3 (1.8-7.7); NEUTROPHILS % (AUTO) 64.4 % (42-75); PLATELET COUNT 183 X10'3 (140-440); RED BLOOD COUNT 5.38 X10'6 (4.70-6.10); RED CELL DISTRIBUTION WIDTH 13.9 % (11.5-14.5); WHITE BLOOD COUNT 7.9 X10'3 (4.5-11.0)
[2023-09-20 00:32] LABS: ALBUMIN 3.6 G/DL (3.4-5.0); ANION GAP 10 (8-16); BLOOD UREA NITROGEN 32 MG/DL (7-18); BUN/CREATININE RATIO 22.4 (10.0-20.0); CALCIUM 8.6 MG/DL (8.5-10.1); CHLORIDE 104 MMOL/L (99-107); CREATININE 1.43 MG/DL (0.60-1.10); GLUCOSE 233 MG/DL (70-104); POTASSIUM 4.2 MMOL/L (3.5-5.1); SODIUM 138 MMOL/L (135-145); TOTAL CARBON DIOXIDE 24.5 MMOL/L (24-32); eCRCL 43 ML/MIN; eGFR 48 ML/MIN
[2023-09-20 01:02] LABS: APTT 31 SECONDS (22-32); INR 1.1 INR; PROTHROMBIN TIME 11.4 SECONDS (9.0-12.0)
[2023-09-20 04:57] VITALS: BP 105/57; PULSE 59; RESP 12; O2SAT 96
== END 2023-09-20 03:40 | disposition home or self-care (01) ==
LOC: ER 23:14
DX: I97.191 Other postprocedural cardiac functional disturbances following other surgery (principal); R79.1 Abnormal coagulation profile; Z79.899 Other long term (current) drug therapy
CPT/HCPCS: 36415; 71045; 80048; 85025; 85610; 85730; 86885; 86900; 86901; 93005; 99285